=== PATIENT | male | born 1945 | race Caucasian/White ===

== ENCOUNTER → 2018-01-07 | Outpatient (CLI) | payer MEDICARE ==
[~2018-01-07] MED LIST: ENOX120I SC; FRAGMIN; LOVA40 PO; Lisinopril2.5 MG PO; Lovastatin20 MG PO; Lovenox150 MG/ML INJ; Metoprolol Succ25 MG PO; PANT20 PO; PANT40 PO; WARF6 PO; [UNRECOGNIZED DRUG - REMARK]
== END | disposition home or self-care (01) ==
LOC: LAB SHORT 11:00 → PLD 11:00
DX: D48.5 Neoplasm of uncertain behavior of skin (principal)
CPT/HCPCS: 88305

== ENCOUNTER → 2018-01-19 | Outpatient (CLI) | payer MEDICARE | LOC: PLD 11:46 → LAB SHORT 11:46 | DX: C44.310 Basal cell carcinoma of skin of unspecified parts of face (principal); C44.319 Basal cell carcinoma of skin of other parts of face | CPT/HCPCS: 88305 ==

== ENCOUNTER → 2018-03-17 | Outpatient (CLI) | payer MEDICARE | END | disposition home or self-care (01) | LOC: PLD 08:01 → LAB SHORT 08:01 | DX: C44.319 Basal cell carcinoma of skin of other parts of face (principal) | CPT/HCPCS: 88305 ==

== ENCOUNTER 2019-08-17 09:19 | Day surgery (SDC) | payer MEDICARE ==
[~2019-08-17] VITALS: Ht 170.2 cm; Wt 72.3 kg
[~2019-08-17 09:19] MED LIST changes: +ASPI81CH PO; +Jantoven5 MG PO
--- NOTE | 2019-08-17 10:21 | NUR ---
08/17/19 1021 Deanne Hernandez 1 IV MISS IN RFA BY ELIF VALVE 1 GOOD IV IN RFA BY ELIF PT TOW
== END 2019-08-17 12:08 | disposition home or self-care (01) ==
LOC: ORSCSDS 09:19
PROVIDERS: Internal Medicine Gastroenterology
PROC: 0D757ZZ Dilation of Esophagus, Via Natural or Artificial Opening (ICD-10-PCS; principal; 2019-08-17 10:45)
PROC: 0DB68ZX Excision of Stomach, Via Natural or Artificial Opening Endoscopic, Diagnostic (ICD-10-PCS; principal; 2019-08-17 10:45)
DX: R13.10 Dysphagia, unspecified (principal); K29.70 Gastritis, unspecified, without bleeding; K44.9 Diaphragmatic hernia without obstruction or gangrene; I10 Essential (primary) hypertension; Z87.891 Personal history of nicotine dependence; E78.5 Hyperlipidemia, unspecified; I48.91 Unspecified atrial fibrillation; Z79.01 Long term (current) use of anticoagulants; Z79.899 Other long term (current) drug therapy
CPT/HCPCS: 88305; 88342; J2704; J7120

== ENCOUNTER → 2020-07-26 | Outpatient (CLI) | payer MEDICARE | END | disposition home or self-care (01) | LOC: LAB SHORT 07:54 → LAB 07:54 → PLD 07:54 | DX: D48.5 Neoplasm of uncertain behavior of skin (principal) | CPT/HCPCS: 88305 ==

== ENCOUNTER 2020-11-10 09:06 | Day surgery (SDC) | payer MEDICARE ==
[2020-11-10] MEDS ORDERED: FLOMAX0.4 MG PO (15:33)
== END 2020-11-10 15:43 | disposition home or self-care (01) ==
LOC: ATC 09:06
DX: Q23.1 Congenital insufficiency of aortic valve (principal); Z95.2 Presence of prosthetic heart valve; Z79.01 Long term (current) use of anticoagulants; I10 Essential (primary) hypertension; E78.5 Hyperlipidemia, unspecified; K44.9 Diaphragmatic hernia without obstruction or gangrene; K31.89 Other diseases of stomach and duodenum; D12.0 Benign neoplasm of cecum; D12.8 Benign neoplasm of rectum; K57.30 Diverticulosis of large intestine without perforation or abscess without bleeding; K64.8 Other hemorrhoids; I48.91 Unspecified atrial fibrillation; K22.4 Dyskinesia of esophagus; H91.90 Unspecified hearing loss, unspecified ear; Z97.4 Presence of external hearing-aid
CPT/HCPCS: 96372; J1650

== ENCOUNTER 2020-11-11 07:01 | Day surgery (SDC) | payer MEDICARE ==
[~2020-11-11 07:01] MED LIST changes: +FLOMAX0.4 MG PO
== END 2020-11-11 16:15 | disposition home or self-care (01) ==
LOC: ATC 07:01
DX: Q23.1 Congenital insufficiency of aortic valve (principal); I69.112 Visuospatial deficit and spatial neglect following nontraumatic intracerebral hemorrhage; Z95.2 Presence of prosthetic heart valve; I68.0 Cerebral amyloid angiopathy; I61.8 Other nontraumatic intracerebral hemorrhage; I10 Essential (primary) hypertension; I48.91 Unspecified atrial fibrillation; I71.2 Thoracic aortic aneurysm, without rupture; D12.0 Benign neoplasm of cecum; D12.8 Benign neoplasm of rectum; K57.30 Diverticulosis of large intestine without perforation or abscess without bleeding; K44.9 Diaphragmatic hernia without obstruction or gangrene; R93.1 Abnormal findings on diagnostic imaging of heart and coronary circulation; K22.4 Dyskinesia of esophagus; D48.5 Neoplasm of uncertain behavior of skin; D68.9 Coagulation defect, unspecified; E78.5 Hyperlipidemia, unspecified; H91.90 Unspecified hearing loss, unspecified ear; E85.4 Organ-limited amyloidosis; E66.3 Overweight; Z68.25 Body mass index [BMI] 25.0-25.9, adult; Z71.3 Dietary counseling and surveillance; Z86.79 Personal history of other diseases of the circulatory system; Z79.01 Long term (current) use of anticoagulants; Z97.4 Presence of external hearing-aid
CPT/HCPCS: 96372; J1650

== ENCOUNTER 2020-11-12 08:16 | Day surgery (SDC) | payer MEDICARE | END 2020-11-12 15:55 | disposition home or self-care (01) | LOC: ATC 08:16 | DX: Q23.1 Congenital insufficiency of aortic valve (principal); Z95.2 Presence of prosthetic heart valve; Z79.01 Long term (current) use of anticoagulants; D12.0 Benign neoplasm of cecum; D12.8 Benign neoplasm of rectum; K57.30 Diverticulosis of large intestine without perforation or abscess without bleeding; K64.8 Other hemorrhoids; K31.89 Other diseases of stomach and duodenum; K44.9 Diaphragmatic hernia without obstruction or gangrene | CPT/HCPCS: 96372; J1650 ==

== ENCOUNTER 2020-11-13 00:26 | Day surgery (SDC) | payer MEDICARE ==
[2020-11-14] MEDS ORDERED: JANTOVEN5 M1 (12:05)
== END 2020-11-13 11:37 | disposition home or self-care (01) ==
LOC: ATC 00:26
DX: Q23.1 Congenital insufficiency of aortic valve (principal); Z95.2 Presence of prosthetic heart valve; D12.0 Benign neoplasm of cecum; D12.8 Benign neoplasm of rectum; K57.30 Diverticulosis of large intestine without perforation or abscess without bleeding; K64.8 Other hemorrhoids; K31.89 Other diseases of stomach and duodenum; K44.9 Diaphragmatic hernia without obstruction or gangrene; Z79.01 Long term (current) use of anticoagulants
CPT/HCPCS: 96372; J1650

== ENCOUNTER 2020-11-14 09:26 | Day surgery (SDC) | payer MEDICARE ==
[2020-11-14] MEDS ORDERED: JANTOVEN5 M1 (12:05)
== END 2020-11-14 23:40 | disposition home or self-care (01) ==
LOC: ATC 09:26
DX: Q23.1 Congenital insufficiency of aortic valve (principal); Z95.2 Presence of prosthetic heart valve; Z79.899 Other long term (current) drug therapy

== ENCOUNTER 2020-11-14 11:22 | Day surgery (SDC) | payer MEDICARE ==
[~2020-11-14] VITALS: Ht 170.2 cm; Wt 76.2 kg
[2020-11-14] MEDS ORDERED: JANTOVEN5 M1 (12:05)
== END 2020-11-14 13:45 | disposition home or self-care (01) ==
LOC: ORSCSDS 11:22
PROVIDERS: Internal Medicine Gastroenterology
PROC: 0DBL8ZX Excision of Transverse Colon, Via Natural or Artificial Opening Endoscopic, Diagnostic (ICD-10-PCS; principal; 2020-11-14 12:45)
DX: Z12.11 Encounter for screening for malignant neoplasm of colon (principal); D12.3 Benign neoplasm of transverse colon; K57.30 Diverticulosis of large intestine without perforation or abscess without bleeding; K64.8 Other hemorrhoids; Z86.010 Personal history of colon polyps; Z95.2 Presence of prosthetic heart valve; Z79.899 Other long term (current) drug therapy; Z79.01 Long term (current) use of anticoagulants; Z87.891 Personal history of nicotine dependence
CPT/HCPCS: 88305; J2704; J7120

== ENCOUNTER 2020-11-15 00:20 | Day surgery (SDC) | payer MEDICARE ==
[~2020-11-15 00:20] MED LIST changes: +JANTOVEN5 M1
== END 2020-11-15 15:33 | disposition home or self-care (01) ==
LOC: ATC 00:20
DX: Q23.1 Congenital insufficiency of aortic valve (principal); D12.0 Benign neoplasm of cecum; D12.8 Benign neoplasm of rectum; K31.89 Other diseases of stomach and duodenum; K64.8 Other hemorrhoids; K44.9 Diaphragmatic hernia without obstruction or gangrene; R13.14 Dysphagia, pharyngoesophageal phase; K22.6 Gastro-esophageal laceration-hemorrhage syndrome; R93.3 Abnormal findings on diagnostic imaging of other parts of digestive tract; K57.30 Diverticulosis of large intestine without perforation or abscess without bleeding; Z95.2 Presence of prosthetic heart valve; Z79.01 Long term (current) use of anticoagulants
CPT/HCPCS: 36416; 85610; 96372; J1650

== ENCOUNTER 2020-11-16 00:16 | Day surgery (SDC) | payer MEDICARE | END 2020-11-16 15:38 | disposition home or self-care (01) | LOC: ATC 00:16 | DX: Q23.1 Congenital insufficiency of aortic valve (principal); K57.30 Diverticulosis of large intestine without perforation or abscess without bleeding; K64.8 Other hemorrhoids; K44.9 Diaphragmatic hernia without obstruction or gangrene; K31.89 Other diseases of stomach and duodenum; Z95.2 Presence of prosthetic heart valve; Z79.01 Long term (current) use of anticoagulants; Z86.010 Personal history of colon polyps; Z87.19 Personal history of other diseases of the digestive system | CPT/HCPCS: 36416; 85610; 96372; J1650 ==

== ENCOUNTER 2020-11-17 00:58 | Day surgery (SDC) | payer MEDICARE ==
--- NOTE | 2020-11-17 16:24 | NUR ---
CALL PLACED TO DR. BARNARD'S OFFICE. PT'S INR IS 1.2 TODAY. LM FOR MD TO CONTACT PT IF THEY WOULD LIKE TO INCREASE HIS COUMADIN. PT WILL CONTINUE TO TAKE COUMADIN 5 MG DAILY UNLESS OTHERWISE DIRECTED.
[2020-11-18] MEDS ORDERED: WARF7.5 PO (16:09)
== END 2020-11-17 15:30 | disposition home or self-care (01) ==
LOC: ATC 00:58
DX: Q23.1 Congenital insufficiency of aortic valve (principal); D12.0 Benign neoplasm of cecum; D12.8 Benign neoplasm of rectum; K31.89 Other diseases of stomach and duodenum; K64.8 Other hemorrhoids; K44.9 Diaphragmatic hernia without obstruction or gangrene; R93.3 Abnormal findings on diagnostic imaging of other parts of digestive tract; K57.30 Diverticulosis of large intestine without perforation or abscess without bleeding; K22.6 Gastro-esophageal laceration-hemorrhage syndrome; R13.14 Dysphagia, pharyngoesophageal phase; Z95.2 Presence of prosthetic heart valve; Z79.01 Long term (current) use of anticoagulants
CPT/HCPCS: 36416; 85610; 96372; J1650

== ENCOUNTER 2020-11-18 01:21 | Day surgery (SDC) | payer MEDICARE ==
[2020-11-18] MEDS ORDERED: WARF7.5 PO (16:09)
--- NOTE | 2020-11-18 16:10 | NUR ---
FINGERSTICK INR 1.4 TODAY
== END 2020-11-18 15:47 | disposition home or self-care (01) ==
LOC: ATC 01:21
DX: Q23.1 Congenital insufficiency of aortic valve (principal); K57.30 Diverticulosis of large intestine without perforation or abscess without bleeding; K64.8 Other hemorrhoids; K31.89 Other diseases of stomach and duodenum; K44.9 Diaphragmatic hernia without obstruction or gangrene; Z95.2 Presence of prosthetic heart valve; Z79.01 Long term (current) use of anticoagulants; Z86.010 Personal history of colon polyps; Z87.19 Personal history of other diseases of the digestive system
CPT/HCPCS: 36416; 85610; 96372; J1650

== ENCOUNTER 2020-11-19 00:39 | Day surgery (SDC) | payer MEDICARE ==
[~2020-11-19 00:39] MED LIST changes: +WARF7.5 PO
== END 2020-11-19 15:31 | disposition home or self-care (01) ==
LOC: ATC 00:39
DX: Q23.1 Congenital insufficiency of aortic valve (principal); Z95.2 Presence of prosthetic heart valve; Z79.01 Long term (current) use of anticoagulants
CPT/HCPCS: 85610; 96372; J1650

== ENCOUNTER 2020-11-20 00:32 | Day surgery (SDC) | payer MEDICARE | END 2020-11-20 15:45 | disposition home or self-care (01) | LOC: ATC 00:32 | DX: Q23.1 Congenital insufficiency of aortic valve (principal); Z95.2 Presence of prosthetic heart valve; Z79.01 Long term (current) use of anticoagulants | CPT/HCPCS: 36416; 85610; 96372; J1650 ==

== ENCOUNTER 2020-11-21 08:20 | Day surgery (SDC) | payer MEDICARE ==
--- NOTE | 2020-11-21 14:07 | NUR ---
INR 2.3 TODAY. LOVENOX INJECTION NOT INDICATED PER ORDERS.
== END 2020-11-21 14:02 | disposition home or self-care (01) ==
LOC: ATC 08:20
DX: Q23.1 Congenital insufficiency of aortic valve (principal); K57.30 Diverticulosis of large intestine without perforation or abscess without bleeding; K64.8 Other hemorrhoids; K31.89 Other diseases of stomach and duodenum; K44.9 Diaphragmatic hernia without obstruction or gangrene; K22.6 Gastro-esophageal laceration-hemorrhage syndrome; Z95.2 Presence of prosthetic heart valve; Z79.01 Long term (current) use of anticoagulants; Z86.010 Personal history of colon polyps; Z87.19 Personal history of other diseases of the digestive system
CPT/HCPCS: 36416; 85610; 99211; J1650

== ENCOUNTER 2021-06-15 20:06 | Inpatient (IN) | payer MEDICARE ==
[~2021-06-15] VITALS: Ht 167.6 cm; Wt 68.0 kg
[2021-06-15 20:39] LABS: BASOPHILS ABSOLUTE AUTO 0.01 K/mm3 (0.00-0.23); BASOPHILS PERCENT AUTO 0 % (0-2); EOSINOPHILS PERCENT AUTO 0 % (0-6); Hematocrit 44.7 % (37.0-53.0); Hemoglobin 16.1 g/dL (13.5-17.5); IMMATURE GRAN ABSOLUTE AUTO 0.07 K/mm3 (0.00-0.10); IMMATURE GRAN PERCENT AUTO 1 % (0-1); LYMPHOCYTES ABSOLUTE AUTO 0.58 K/mm3 (0.84-5.20); LYMPHOCYTES PERCENT AUTO 4 % (21-46); MONOCYTES ABSOLUTE AUTO 1.65 K/mm3 (0.16-1.47); MONOCYTES PERCENT AUTO 11 % (4-13); Mean Corpuscular Volume 86 fL (80-100); Mean Platelet Volume 10.3 fL (9.1-12.4); NEUTROPHILS ABSOLUTE AUTO 12.98 K/mm3 (1.96-9.15); NEUTROPHILS PERCENT AUTO 85 % (41-73); Platelet Count 250 K/mm3 (150-400); RDW Coefficient Variation 12.1 % (11.7-14.2); RDW Standard Deviation 37.9 fL (35.1-46.3); White Blood Cell Count 15.29 K/mm3 (4.00-11.30)
[2021-06-15 20:56] LABS: Alanine Aminotransfer (ALT/SGP 90 U/L (12-78); Albumin, Blood 4.2 g/dL (3.4-5.0); Albumin/Globulin Ratio 1.2 (0.8-1.8); Alk Phos 89 U/L (50-136); Anion Gap 11 mmol/L (6-16); Aspartate Aminotrans (AST/SGOT 195 U/L (12-37); Bilirubin, Total 1.7 mg/dL (0.1-1.0); Blood Urea Nitrogen 42 mg/dL (8-24); Bun/Creatinine Ratio 37.8 (12.0-20.0); CO2, Blood 24 mmol/L (21-32); Calcium, Blood 9.5 mg/dL (8.5-10.1); Chloride, Blood 105 mmol/L (98-108); Creatinine, Blood 1.11 mg/dL (0.60-1.20); Globulin, Blood 3.4 g/dL (2.2-4.0); Glomerular Filtration Rate >60 (60-); Glucose, Blood 131 mg/dL (70-99); Potassium, Blood 3.8 mmol/L (3.5-5.5); Sodium, Blood 140 mmol/L (136-145); Total Protein, Blood 7.6 g/dL (6.4-8.2)
[2021-06-15 21:30] LABS: International Normalized Ratio 6.81
[2021-06-16 00:14] LABS: SARS-Cov-2 (COVID-19) PCR, MMC NEGATIVE (NEGATIVE)
[2021-06-16 04:38] LABS: Hemoglobin 15.4 g/dL (13.5-17.5); Mean Corpuscular HGB 31.1 pg (26.0-34.0); Mean Corpuscular Volume 89 fL (80-100); Mean Platelet Volume 10.2 fL (9.1-12.4); Platelet Count 191 K/mm3 (150-400); RDW Coefficient Variation 12.4 % (11.7-14.2); RDW Standard Deviation 39.9 fL (35.1-46.3); Red Blood Cell Count 4.95 M/mm3 (4.30-5.90); White Blood Cell Count 12.14 K/mm3 (4.00-11.30)
[2021-06-16 04:59] LABS: Anion Gap 8 mmol/L (6-16); Blood Urea Nitrogen 42 mg/dL (8-24); Bun/Creatinine Ratio 39.6 (12.0-20.0); CO2, Blood 26 mmol/L (21-32); Calcium, Blood 8.9 mg/dL (8.5-10.1); Chloride, Blood 109 mmol/L (98-108); Creatinine, Blood 1.06 mg/dL (0.60-1.20); Glomerular Filtration Rate >60 (60-); Glucose, Blood 105 mg/dL (70-99); Magnesium, Blood 2.7 mg/dL (1.6-2.4); Potassium, Blood 3.9 mmol/L (3.5-5.5); Sodium, Blood 143 mmol/L (136-145)
[2021-06-16 05:03] LABS: Prothrombin Time Results 80.6 Sec (9.7-11.5)
[2021-06-16 05:04] LABS: International Normalized Ratio 8.42
--- NOTE | 2021-06-16 06:06 | NUR ---
DR HARVEY NOTIFIED OF CRITICAL INR. INR WAS 8.42 THIS MORNING. WAS 6.81 IN ER. COUMADIN ALREADY BEING HELD. MD HARVEY WOULD LIKE FOR INR TO BE REORDERED IN AM. PATIENT STILL UNABLE TO SPEAK. FOLLOWING SOME SIMPLE COMMANDS. PROBABLY UNSTEADY ON FEET BUT HAS BEEN BEDREST SINCE ARRIVAL TO FLOOR. NEUROCHECKS DONE Q4H. PATIENT IS INCONTINENT. UNABLE TO GET MUCH INFORMATION FOR ADMISSION HISTORY DUE TO NONVERBAL STATUS.
--- NOTE | 2021-06-16 18:34 | NUR ---
SHIFT SUMMARY PT HAS ABRASIONS ON BACK AND R KNEE WELL SCATTERED BRUISING. STILL SEEMS TO HAVE SOME RECEPTIVE AND EXPRESSIVE APHASIA WELL RIGHT FACIAL DROOP, RIGHT ARM AND LEG DRIFT, BUT WITH HX OF STROKE THIS MAY BE BASELINE. PT FORGETFUL AND REQUIRES REORIENTING.
[2021-06-17 02:20] LABS: Source, Urine Clean Catch
[2021-06-17 02:22] LABS: Bilirubin, Urine Neg (Neg); Blood, Urine 5+ (Neg); Glucose Qualitative, Urine Neg (Neg); Ketones, Urine 2+ (Neg); Leukocyte Esterase, Urine 1+ (Neg); Nitrite, Urine Neg (Neg); Protein, Urine 2+ (Neg); Specific Gravity, Urine 1.015 (1.003-1.022); Urobilinogen, Urine 1+ (Normal)
[2021-06-17 02:34] LABS: Appearance, Urine Clear (Clear); Color, Urine Amber (P-Yellow)
[2021-06-17 02:35] LABS: Bacteria Mod /hpf; Mucus Light (0-Heavy); Squamous Epithelial Cells Not Seen /hpf (Few); White Blood Cells, Urine 0-2 /hpf (0-5)
[2021-06-17 04:32] LABS: Hematocrit 39.5 % (37.0-53.0); Hemoglobin 13.7 g/dL (13.5-17.5); Mean Corpuscular HGB 30.8 pg (26.0-34.0); Mean Corpuscular HGB Conc 34.7 g/dL (31.5-36.5); Mean Corpuscular Volume 89 fL (80-100); Mean Platelet Volume 9.9 fL (9.1-12.4); Platelet Count 156 K/mm3 (150-400); RDW Coefficient Variation 12.3 % (11.7-14.2); RDW Standard Deviation 39.8 fL (35.1-46.3); Red Blood Cell Count 4.45 M/mm3 (4.30-5.90)
[2021-06-17 04:47] LABS: International Normalized Ratio 3.68; Prothrombin Time Results 36.9 Sec (9.7-11.5)
[2021-06-17 04:49] LABS: Anion Gap 2 mmol/L (6-16); Blood Urea Nitrogen 27 mg/dL (8-24); Bun/Creatinine Ratio 33.1 (12.0-20.0); CO2, Blood 29 mmol/L (21-32); Calcium, Blood 8.3 mg/dL (8.5-10.1); Chloride, Blood 111 mmol/L (98-108); Creatinine, Blood 0.82 mg/dL (0.60-1.20); Glomerular Filtration Rate >60 (60-); Glucose, Blood 104 mg/dL (70-99); Potassium, Blood 3.5 mmol/L (3.5-5.5); Sodium, Blood 142 mmol/L (136-145)
--- NOTE | 2021-06-17 05:04 | NUR ---
PATIENT IS ALERT, HE IS SLIGHTLY MORE ORIENTED THAN HE WAS YESTERDAY, BUT STILL HAVING DIFFICULTY FORMING COHERENT THOUGHTS. SEEMS TO BE HAVING EXPRESSIVE APHASIA ALSO. UA/CULTURE WAS COLLECTED AND SENT TO LAB. RESULTS PENDING.PATIENT INCONTINENT, ON BEDREST. ROOM AIR. NEURO CHECKS ARE UNCHANGED. NO BEHAVIORAL SIGNS OF ANY PAIN/NAUSEA.
--- NOTE | 2021-06-17 09:52 | NUR ---
DR YARBROUGH TO ROOM. OKAY TO GIVE ASA
--- NOTE | 2021-06-17 17:58 | NUR ---
PT PLEASANT TODAY. NO C/O PAIN TODAY. HE DID WORK WITH PT TODAY. RT SIDE WEAKNESS NOTED. DAISY SPEACH CONTINUES. DID STATE FROM [facility]. DID SPEAK A LITTLE BETTER SPEACH THIS AFT THAN THIS AM. NO NEW CONCERNS NOTED. BED IN LOW POSITION, CALL LITE IN REACH, BED ALARM ON FOR SAFETY
[2021-06-18 05:25] LABS: BASOPHILS ABSOLUTE AUTO 0.02 K/mm3 (0.00-0.23); BASOPHILS PERCENT AUTO 0 % (0-2); EOSINOPHILS ABSOLUTE AUTO 0.11 K/mm3 (0.00-0.68); EOSINOPHILS PERCENT AUTO 2 % (0-6); Hematocrit 38.4 % (37.0-53.0); Hemoglobin 13.4 g/dL (13.5-17.5); IMMATURE GRAN ABSOLUTE AUTO 0.02 K/mm3 (0.00-0.10); IMMATURE GRAN PERCENT AUTO 0 % (0-1); LYMPHOCYTES ABSOLUTE AUTO 0.85 K/mm3 (0.84-5.20); LYMPHOCYTES PERCENT AUTO 12 % (21-46); MONOCYTES ABSOLUTE AUTO 0.57 K/mm3 (0.16-1.47); MONOCYTES PERCENT AUTO 8 % (4-13); Mean Corpuscular HGB 31.1 pg (26.0-34.0); Mean Corpuscular HGB Conc 34.9 g/dL (31.5-36.5); Mean Corpuscular Volume 89 fL (80-100); NEUTROPHILS ABSOLUTE AUTO 5.56 K/mm3 (1.96-9.15); NEUTROPHILS PERCENT AUTO 78 % (41-73); Platelet Count 158 K/mm3 (150-400); RDW Coefficient Variation 12.1 % (11.7-14.2); RDW Standard Deviation 39.5 fL (35.1-46.3); Red Blood Cell Count 4.31 M/mm3 (4.30-5.90); White Blood Cell Count 7.13 K/mm3 (4.00-11.30)
--- NOTE | 2021-06-18 05:30 | NUR ---
THERAPEUTIC ACTIVITIES SERVICES WORKER SUMMARY PT ALERT. GARBLED AND SLURRED SPEECH, EXPRESSIVE APHASIA. RIGHT SIDED WEAKNESS. NO FACIAL DROOPING. PT TRIED TO GET UP MULTIPLE TIMES TONIGHT. BED ALARM HAS BEEN ON, RAILS X3. SR AT 73 WITH PVC'S PER SENIOR NETWORK SYSTEMS ENGINEER. VSS, NO ACUTE CHANGES. CALL LIGHT WITHIN REACH, BED ALARM ON, WILL CONTINUE TO MONITOR.
[2021-06-18 05:39] LABS: International Normalized Ratio 1.92
[2021-06-18 05:56] LABS: Anion Gap 3 mmol/L (6-16); Blood Urea Nitrogen 17 mg/dL (8-24); Bun/Creatinine Ratio 25.9 (12.0-20.0); CO2, Blood 31 mmol/L (21-32); Calcium, Blood 8.3 mg/dL (8.5-10.1); Chloride, Blood 108 mmol/L (98-108); Creatinine, Blood 0.66 mg/dL (0.60-1.20); Glomerular Filtration Rate >60 (60-); Glucose, Blood 95 mg/dL (70-99); Potassium, Blood 3.5 mmol/L (3.5-5.5); Sodium, Blood 142 mmol/L (136-145)
[2021-06-18 12:05] LABS: CHOL/HDL RATIO 1.9; Cholesterol 131 mg/dL (50-200); HDL Cholesterol 68 mg/dL (>39); LDL/HDL RATIO 0.7; Low Density Lipoprotein Chol 49 mg/dL (0-110); Triglycerides 71 mg/dL (30-160); Very Low Density Lipoprot Chol 14 mg/dL (6-32)
--- NOTE | 2021-06-18 17:49 | NUR ---
HEPARIN Failed swallow eval, per ST, NPO and nonoral meds. Discuss with Dr. Hein T.Russell. to intiate heparin drip and d/c SC heparin order intially placed in lieu of PO coumadin. EMAR updated. Pharmacy consulted for heparin drip.
--- NOTE | 2021-06-18 18:23 | NUR ---
Shift Summary A/O to self, currently NPO and nonoral meds only d/t failed modified barium swallow. Worked with ST/PT/OT, tolerated well. Up with 1p and gait to chair and bathroom. Continent/Incontinent. Tele: SR PAC's PVC's. Impulsive and sets the bed alarm off. Does not call for needs. Speech is much improved, minimal slurred/garbled speech but comprehension is good. Plan for peg-tube placement pending discussion with son. Palliative Care Margo notified of son's desire to Facetime or Zoom with patient. Bed alarm on, bed in lowest position.
--- NOTE | 2021-06-19 04:30 | NUR ---
SUMMARY NO NEW ISSUES NOTED. PT HAS DIFFICULTY FINDING WORDS. PT HAS BEEN SLEEPING WELL. PT CURRENTLY SLEEPING IN NO DISTRESS. CALL LIGHT IN REACH AND BED ALARM ON.
[2021-06-19 05:53] LABS: BASOPHILS ABSOLUTE AUTO 0.02 K/mm3 (0.00-0.23); BASOPHILS PERCENT AUTO 0 % (0-2); EOSINOPHILS ABSOLUTE AUTO 0.44 K/mm3 (0.00-0.68); EOSINOPHILS PERCENT AUTO 7 % (0-6); Hematocrit 41.9 % (37.0-53.0); Hemoglobin 14.5 g/dL (13.5-17.5); IMMATURE GRAN ABSOLUTE AUTO 0.03 K/mm3 (0.00-0.10); IMMATURE GRAN PERCENT AUTO 1 % (0-1); LYMPHOCYTES ABSOLUTE AUTO 0.92 K/mm3 (0.84-5.20); LYMPHOCYTES PERCENT AUTO 15 % (21-46); MONOCYTES ABSOLUTE AUTO 0.61 K/mm3 (0.16-1.47); MONOCYTES PERCENT AUTO 10 % (4-13); Mean Corpuscular HGB 30.5 pg (26.0-34.0); Mean Corpuscular HGB Conc 34.6 g/dL (31.5-36.5); Mean Corpuscular Volume 88 fL (80-100); Mean Platelet Volume 10.2 fL (9.1-12.4); NEUTROPHILS PERCENT AUTO 68 % (41-73); Platelet Count 167 K/mm3 (150-400); RDW Coefficient Variation 11.9 % (11.7-14.2); RDW Standard Deviation 38.4 fL (35.1-46.3); Red Blood Cell Count 4.75 M/mm3 (4.30-5.90); White Blood Cell Count 6.22 K/mm3 (4.00-11.30)
[2021-06-19 06:22] LABS: International Normalized Ratio 1.55; Prothrombin Time Results 16.3 Sec (9.7-11.5)
[2021-06-19 06:41] LABS: Anion Gap 6 mmol/L (6-16); Blood Urea Nitrogen 14 mg/dL (8-24); Bun/Creatinine Ratio 19.9 (12.0-20.0); CO2, Blood 31 mmol/L (21-32); Calcium, Blood 8.7 mg/dL (8.5-10.1); Chloride, Blood 105 mmol/L (98-108); Glomerular Filtration Rate >60 (60-); Glucose, Blood 79 mg/dL (70-99); Potassium, Blood 3.3 mmol/L (3.5-5.5); Sodium, Blood 142 mmol/L (136-145)
--- NOTE | 2021-06-19 08:46 | NUR ---
CLINIMIX Received V.O. from Dr. Hein to start clinimix @ 100 mLs/hr. EMAR updated.
--- NOTE | 2021-06-19 15:05 | NUR ---
MAY REMOVE TELE FOR SHOWER V.O. RECEIVED FOR THE ABOVE BY DR. Scott YARBROUGH.
--- NOTE | 2021-06-19 17:23 | NUR ---
Shift Summary A/O to self. Worked with PT/OT/ST today. Son Lawrence, support person, came in to visit patient and to speak with Dr. Roberts and Dr. Iglesias. Clinimix @ 100 mLs, heparin at 15.5 u/kg/hr. Tele: PVC PAC @ 86. VSS, afebrile. Bed alarm on, remains impulsive.
--- NOTE | 2021-06-19 18:17 | NUR ---
Pt's son in today to bring pt's glasses and hearing aides as well as to see his dad, as son Jake is the sole decision maker. Important for his to know what the options are, and realistically. Jake was tearful after the visit; he is wondering about both Home Health and Hospice. We plan to talk about that tomorrow mid morning. He verbalizes understanding. No recent change in pt's condition.
[2021-06-20 02:34] LABS: BASOPHILS ABSOLUTE AUTO 0.02 K/mm3 (0.00-0.23); BASOPHILS PERCENT AUTO 0 % (0-2); EOSINOPHILS ABSOLUTE AUTO 0.43 K/mm3 (0.00-0.68); EOSINOPHILS PERCENT AUTO 7 % (0-6); Hematocrit 39.5 % (37.0-53.0); IMMATURE GRAN ABSOLUTE AUTO 0.03 K/mm3 (0.00-0.10); IMMATURE GRAN PERCENT AUTO 1 % (0-1); LYMPHOCYTES PERCENT AUTO 16 % (21-46); MONOCYTES ABSOLUTE AUTO 0.71 K/mm3 (0.16-1.47); MONOCYTES PERCENT AUTO 12 % (4-13); Mean Corpuscular HGB 30.6 pg (26.0-34.0); Mean Corpuscular HGB Conc 35.4 g/dL (31.5-36.5); Mean Corpuscular Volume 86 fL (80-100); Mean Platelet Volume 9.9 fL (9.1-12.4); NEUTROPHILS PERCENT AUTO 64 % (41-73); Platelet Count 183 K/mm3 (150-400); RDW Coefficient Variation 11.7 % (11.7-14.2); RDW Standard Deviation 36.6 fL (35.1-46.3); Red Blood Cell Count 4.58 M/mm3 (4.30-5.90); White Blood Cell Count 6.09 K/mm3 (4.00-11.30)
[2021-06-20 02:40] LABS: International Normalized Ratio 1.43; Prothrombin Time Results 15.1 Sec (9.7-11.5)
--- NOTE | 2021-06-20 04:47 | NUR ---
PATIENT IN BED CONFUSED WITH EXPRESSIVE APHASIA. UNABLE TO FOLLOW COMMANDS AT TIMES. HEPARIN DRIP INFUSING AT 21.1 ML/HOUR. NO SIGNS OF BLEEDING NOTED. IVF INFUSING. ASSISTED WITH ADLS. BED ALARM EXIT ON. FREQUENT ROUNDS IN PROGRESS.
[2021-06-20 09:27] LABS: Anion Gap 5 mmol/L (6-16); Blood Urea Nitrogen 18 mg/dL (8-24); Bun/Creatinine Ratio 23.9 (12.0-20.0); CO2, Blood 32 mmol/L (21-32); Calcium, Blood 8.6 mg/dL (8.5-10.1); Chloride, Blood 104 mmol/L (98-108); Creatinine, Blood 0.75 mg/dL (0.60-1.20); Glomerular Filtration Rate >60 (60-); Glucose, Blood 112 mg/dL (70-99); Potassium, Blood 3.4 mmol/L (3.5-5.5); Sodium, Blood 141 mmol/L (136-145)
--- NOTE | 2021-06-20 17:34 | NUR ---
Pt going home with hospice with his son, either tomorrow or friday. See medical case manager note.
--- NOTE | 2021-06-20 18:27 | NUR ---
SHIFT SUMMARY: CONVERTED TO COMFORT CARE THIS EVENING. HAS BEEN NON VERBAL TO THIS AUTHOR. SLEEPING INTERMITTENTLY. INCONTINENT OF B&B, ATTENDS IN PLACE. NPO FOR SEVERE DYSPHAGIA. PLAN IS D/C WITH HOSPICE.
--- NOTE | 2021-06-20 23:48 | NUR ---
PATIENT NOTED TO BE RESTLESS. ADLS PROVIDED. REPOSITIONED FOR COMFORT. PATIENT BECAME CALMER. RESTING IN BED. WILL CONTINUE WITH COMFORT AND SAFETY MEASURES.
--- NOTE | 2021-06-21 06:25 | NUR ---
PATIENT IS COMFORT MEASURES. NO S/S OF DISCOMFORT NOTED. WILL CONTINUE WITH FREQUENT ROUNDS.
--- NOTE | 2021-06-21 17:42 | NUR ---
SHIFT SUMMARY: NO ACUTE EVENTS. DENIED PAIN. BECAME AGITATED AROUND NOON, STATING HE NEEDED "TO GO HOME, I HAVE WORK TO DO." EXPLAINED TO HIM THAT HE WOULD BE GOING HOME TOMORROW, BUT THE AGITATION PERSISTED; ATIVAN 1 MG GIVEN CRUSHED IN APPLESSAUCE, WHICH HE SWALLOWED SLOWLY AND HAD GOOD EFFECT. RESTED COMFORTABLY THE REST OF THE DAY. IS AMBULATING WITH ASSISTANCE TO BR.
--- NOTE | 2021-06-22 03:03 | NUR ---
RECEIVED PATIENT IN BED. NO CHANGES IN STATUS NOTED. STILL CONFUSED. SAFETY AND COMFORT MEASURES MAINTAINED. ADLS GIVEN. NO S/S OF PAIN. WILL CONTINUE TO MONITOR.
[2021-06-22] MEDS ORDERED: Ativan1 MG PO (09:12)
[2021-06-22] MEDS ORDERED: MORP20L SL (09:13)
== END 2021-06-22 11:35 | disposition hospice, home (50) | DRG 65 ==
LOC: ER 20:06 → MEDS 22:32 → ENPENDDIS 06-22 08:47 → MEDS 06-22 11:35
PROVIDERS: Emergency Medicine; Internal Medicine; Physician Assistant; Student in an Organized Health Care Education/Training Program; ADMIT Internal Medicine
PROC: 3E0234Z Introduction of Serum, Toxoid and Vaccine into Muscle, Percutaneous Approach (ICD-10-PCS; principal; 2021-06-15)
DX: I63.89 Other cerebral infarction (principal); G93.49 Other encephalopathy; Q23.1 Congenital insufficiency of aortic valve; G81.91 Hemiplegia, unspecified affecting right dominant side; I47.2 Ventricular tachycardia; Z96.642 Presence of left artificial hip joint; Z51.5 Encounter for palliative care; Z66 Do not resuscitate; R47.01 Aphasia; Z20.822 Contact with and (suspected) exposure to COVID-19; I10 Essential (primary) hypertension; R13.10 Dysphagia, unspecified; Z60.2 Problems related to living alone; R47.81 Slurred speech; R29.810 Facial weakness; Z87.891 Personal history of nicotine dependence; Z98.890 Other specified postprocedural states; Z79.01 Long term (current) use of anticoagulants; Z23 Encounter for immunization
CPT/HCPCS: 36415; 70450; 70496; 70551; 74230; 80048; 80053; 80061; 81001; 83036; 83735; 85025; 85027; 85610; 85730; 87086; 90471; 90714; 92507; 92523; 92610; 92611; 93005; 93010; 93306; 93880; 97110; 97162; 97167; 97530; 97535; 99285-25; A9270; J1644; J7030; Q9967; U0004